=== PATIENT | male | born 1980 | race African-American/Black ===

== ENCOUNTER 2020-04-16 15:00 | Emergency (ER) | payer MEDICAID, OTHER ==
[~2020-04-16] VITALS: Ht 190.5 cm; Wt 99.8 kg
[2020-04-16 15:32] VITALS: BP 121/73
[2020-04-16] MEDS ORDERED: AZITHROMYCIN 250 MG TAB PO ONE (16:45)
[2020-04-16] MEDS ORDERED: cefTRIAXone SODIUM 250 MG VL IM ONE (16:45)
== END 2020-04-16 17:09 | disposition home or self-care (01) ==
LOC: ER 15:00
DX: N39.0 Urinary tract infection, site not specified (principal)
CPT/HCPCS: 81002; 96372; 99283; J0696